=== PATIENT | female | born 1985 | race Caucasian/White ===

== ENCOUNTER → 2017-04-06 | Day surgery (SDC) | payer OTHER ==
[~2017-04-06] VITALS: Ht 170.2 cm; Wt 88.2 kg
[~2017-04-06] MED LIST: NORCO 5-325 TA1 EACH PO; PERCOCET 5-3251 EACH PO; PRENATAL 1+1)(P1 TAB PO; TUMS200 MG PO
--- NOTE | ~2017-04-06 | OR ---
PATIENT'S NAME: EAMON BLAIR [facility] AGE: 31 Y [address] ROOM: [place] [id number] LOCATION: [facility] [place] DATE: 04/06/2017 OR/Procedure Report DISCHARGE DATE: FAMILY PHYSICIAN: Jorge Alberto Núñez MD ATTENDING PHYSICIAN: Mirtha Nieves SURGEON: Mirtha Nieves MD DIABETES NURSE: DATE OF PROCEDURE: 04/06/2017 POSTOPERATIVE DIAGNOSIS: Left breast lump. POSTOPERATIVE DIAGNOSIS: Left breast lipoma. FINDINGS: The patient had a 4 cm soft tissue mass consistent with lipoma. ESTIMATED BLOOD LOSS: Minimal. COMPLICATIONS: None. INDICATIONS: The patient is a 31-year-old female who presented with a left breast lump. On examination, this was most consistent with lipoma. We discussed biopsy versus observation versus excision, the risks, benefits, and alternatives, and she wished to have this excised. DESCRIPTION OF PROCEDURE: The patient was taken to the operating room. She was supine, given IV sedation. Her chest was cleansed with ChloraPrep and sterilely draped. Local anesthetic was infiltrated overlying the palpable lump. Transverse incision was created and carried into the subcutaneous tissues. A soft tissue mass was identified consistent with lipoma. This was dissected around circumferentially and removed. This was passed off the table as specimen and was approximately 4 cm in size. Operative field was inspected. It appeared hemostatic. The skin edges were reapproximated with 4- 0 Monocryl suture. Steri-Strips and sterile dressings were placed. She tolerated this well. MIRTHA NIEVES MD BJO/modl /[id number] d: 04/06/172146 t: 04/16/17608, OPERATIVE SUMMARY
== END | disposition disaster alternative care site (69) ==
LOC: GPOC 04-01 13:00 → GSDC 09:24 → GPOC 13:00
PROC: 0HBUXZZ (ICD-10-PCS; principal; 2017-04-06)
DX: N63 Unspecified lump in breast (principal); Z98.890 Other specified postprocedural states
CPT/HCPCS: J0690; J2001; J7120